=== PATIENT | male | born 1970 | race African-American/Black ===

== ENCOUNTER 2017-11-17 09:32 | Emergency (ER) | payer OTHER ==
[~2017-11-17] VITALS: Ht 188 cm; Wt 123.5 kg
[~2017-11-17 09:32] MED LIST: ADULT LOW DOSE81 M1 PO; ASPIR-TRIN325 M1 PO; ASPIRIN325 MG PO; CEFDINIR300 MG PO; CEFTIN500 MG PO; CHERATUSSIN AC473 ML PO; CLOPIDOGREL75 MG PO; LISINOPRIL5 MG PO; PREDNISONE10 M1 PO; Robitussin DM PO; TORADOL10 MG PO; Tessalon Perle PO; ULTRAM50 MG PO; VENTOLIN HFA18 GM IH; ZESTRIL,PRINIVI10 M1 PO; ZESTRIL,PRINIVI20 MG PO; ZYRTEC10 M3 PO; Zestril,Prinivil PO; Zithromax PO; Zocor PO
[2017-11-17 10:37] LABS: BASOPHIL (%) 1.1 % (0-1); EOSINOPHIL (%) 1.9 % (0-5); EOSINOPHIL COUNT 0.1 K/uL (0-0.3); HEMATOCRIT 43.6 % (38.0-50.0); LYMPHOCYTE (%) 44.4 % (15-42); LYMPHOCYTE COUNT 1.2 K/uL (1.0-2.8); MCH 30.3 PG (29.0-34.0); MCHC 34.4 G/DL (30.0-36.0); MCV 88.1 FL (86-99); MONOCYTE (%) 6.9 % (3-12); MONOCYTE COUNT 0.2 K/uL (0-0.8); NEUTROPHIL (%) 45.7 % (45-76); NEUTROPHIL COUNT 1.2 K/uL (1.8-6.4); PLATELET COUNT 166 K/uL (156-360); RBC DIS.WIDTH-CV 13.2 % (11.8-14.6); RBC DIS.WIDTH-SD 42.5 % (39-53); RED BLOOD COUNT 4.95 M/uL (4.00-5.50); WHITE BLOOD COUNT 2.6 K/uL (4.1-10.2)
[2017-11-17 10:48] LABS: CHLORIDE 105 mEq/L (99-109); POTASSIUM 4.5 mEq/L (3.7-5.4); SODIUM 141 mEq/L (136-147)
[2017-11-17 10:49] LABS: GLUCOSE 90 mg/dL (70-99)
[2017-11-17 10:53] LABS: CREATININE 1.5 mg/dL (0.6-1.3); GFR ESTIMATE (CALCULATED) > 59 mL/min/ (58.99-99999)
[2017-11-17 10:54] LABS: UREA NITROGEN (BUN) 13 mg/dL (9-23)
[2017-11-17 12:05] VITALS: BP 138/89
== END 2017-11-17 12:07 | disposition home or self-care (01) ==
LOC: EME 09:32
PROVIDERS: Emergency Medicine
DX: R20.0 Anesthesia of skin (principal); R20.2 Paresthesia of skin; D72.819 Decreased white blood cell count, unspecified; R51 Headache; Z86.73 Personal history of transient ischemic attack (TIA), and cerebral infarction without residual deficits; Z79.02 Long term (current) use of antithrombotics/antiplatelets; I10 Essential (primary) hypertension
CPT/HCPCS: 70450; 80048; 85025; 93005; 99281; 99284